=== PATIENT | female | born 1995 | race Caucasian/White ===

== ENCOUNTER 2020-04-22 14:33 | Emergency (ER) | payer BC, OTHER ==
[~2020-04-22] VITALS: Ht 149.9 cm; Wt 54.4 kg
[2020-04-22 14:35] VITALS: BP 134/89
== END 2020-04-22 17:42 | disposition left against medical advice (07) ==
LOC: EDBD 14:33 → ER 14:33
DX: J02.9 Acute pharyngitis, unspecified (principal); Z53.21 Procedure and treatment not carried out due to patient leaving prior to being seen by health care provider